=== PATIENT | male | born 1960 | race Native Hawaiian/Other Pacific Islander ===

== ENCOUNTER 2016-08-12 11:48 | Outpatient (CLI) | payer BC ==
[2016-08-12 14:03] LABS: PLATELET COUNT 235 K/uL (142-355)
[2016-08-12 14:05] LABS: POTASSIUM 4.5 mmol/L (3.6-5.2); SODIUM 138 mmol/L (136-145)
== END 2016-08-12 19:15 | disposition home or self-care (01) ==
LOC: LABW 11:48
PROVIDERS: Internal Medicine Cardiovascular Disease
DX: R06.00 Dyspnea, unspecified (principal); I70.90 Unspecified atherosclerosis
CPT/HCPCS: 36415; 80053; 80061; 82248; 85027

== ENCOUNTER 2018-01-02 13:58 | Outpatient (CLI) | payer BC | END 2018-01-02 19:25 | disposition home or self-care (01) | LOC: LAB 13:58 | DX: R19.7 Diarrhea, unspecified (principal) | CPT/HCPCS: 82272; 87015; 87045; 87205; 87324; 87328; 87329; 87449; 87899 ==

== ENCOUNTER 2018-05-16 15:17 | Outpatient (CLI) | payer BC | END 2018-05-16 19:09 | disposition home or self-care (01) | LOC: LAB 15:17 | DX: R19.7 Diarrhea, unspecified (principal) | CPT/HCPCS: 82272; 83630; 87015; 87045; 87324; 87328; 87329; 87449; 87899 ==

== ENCOUNTER 2019-01-14 09:57 | Outpatient (CLI) | payer BC | END 2019-01-14 21:50 | disposition home or self-care (01) | LOC: LABW 09:57 | DX: R19.7 Diarrhea, unspecified (principal) | CPT/HCPCS: 87015; 87045; 87324; 87449; 87899 ==

== ENCOUNTER 2020-08-24 08:39 | Outpatient (CLI) | payer OTHER | END 2020-08-24 19:33 | disposition home or self-care (01) | LOC: RAD 08:39 | PROVIDERS: ATTEND Internal Medicine | DX: Z02.71 Encounter for disability determination (principal) ==

== ENCOUNTER 2021-05-10 10:21 | Outpatient (CLI) | payer OTHER, BC ==
[2021-05-10 11:10] LABS: PLATELET COUNT 211 K/uL (142-355)
[2021-05-10 11:13] LABS: POTASSIUM 4.2 mmol/L (3.6-5.2)
== END 2021-05-10 19:14 | disposition home or self-care (01) ==
LOC: LABW 10:21
PROVIDERS: ATTEND Internal Medicine Cardiovascular Disease
DX: E78.5 Hyperlipidemia, unspecified (principal); I25.10 Atherosclerotic heart disease of native coronary artery without angina pectoris
CPT/HCPCS: 36415; 80048; 80061; 80076; 85027; 85610

== ENCOUNTER 2022-01-09 09:11 | Outpatient (CLI) | payer OTHER, BC ==
[2022-01-09 09:44] LABS: POTASSIUM 4.2 mmol/L (3.6-5.2)
== END 2022-01-09 19:07 | disposition home or self-care (01) ==
LOC: CT 09:11
PROVIDERS: ATTEND Internal Medicine
DX: Z09 Encounter for follow-up examination after completed treatment for conditions other than malignant neoplasm (principal); Z86.718 Personal history of other venous thrombosis and embolism; Z86.711 Personal history of pulmonary embolism; G47.33 Obstructive sleep apnea (adult) (pediatric); E11.9 Type 2 diabetes mellitus without complications
CPT/HCPCS: 36415; 80048; Q9963

== ENCOUNTER 2022-01-25 12:32 | Outpatient (CLI) | payer OTHER, BC | END 2022-01-25 21:30 | disposition home or self-care (01) | LOC: MRI 12:32 → US 15:00 → MRI 21:30 | PROVIDERS: ATTEND Internal Medicine | DX: R60.0 Localized edema (principal); Z86.718 Personal history of other venous thrombosis and embolism; Z09 Encounter for follow-up examination after completed treatment for conditions other than malignant neoplasm; M25.571 Pain in right ankle and joints of right foot; E11.9 Type 2 diabetes mellitus without complications ==

== ENCOUNTER 2022-09-26 12:31 | Outpatient (CLI) | payer OTHER, BC | END 2022-09-26 17:00 | LOC: LABW 12:31 | PROVIDERS: ATTEND Internal Medicine Cardiovascular Disease | DX: Z79.899 Other long term (current) drug therapy (principal); I50.9 Heart failure, unspecified | CPT/HCPCS: 36415; 80048; 83880 ==

== ENCOUNTER 2022-10-24 13:17 | Outpatient (CLI) | payer OTHER, BC | END 2022-10-24 19:01 | disposition home or self-care (01) | LOC: RESP 13:17 | PROVIDERS: ATTEND Internal Medicine Cardiovascular Disease | DX: I10 Essential (primary) hypertension (principal) ==

== ENCOUNTER 2023-06-24 10:09 | Outpatient (CLI) | payer OTHER, BC | END 2023-06-24 20:15 | disposition home or self-care (01) | LOC: US 10:09 | PROVIDERS: ATTEND Internal Medicine | DX: M79.604 Pain in right leg (principal) ==